=== PATIENT | male | born 1965 | race Caucasian/White ===

== ENCOUNTER 2018-12-26 22:50 | Inpatient (IN) | payer MEDICARE, MEDICAID ==
--- NOTE | 2018-12-26 23:50 | ED ---
General Adult HPI - General Chief complaint: Psychiatric Symptoms Stated complaint: Mental health Time Seen by Provider: 12/26/18 23:06 Source: police Mode of arrival: ambulatory Limitations: no limitations - History of Present Illness Initial comments: Dictation was produced using [employer] dictation software. please excuse any grammatical, word or spelling errors. Chief Complaint: 53-year-old male past medical history of cerebral palsy and chronic nystagmus presents with paranoid believe. History of Present Illness: She is a 53-year-old male denies any history of psychiatric disease. Over the last 7 days she's been concerned that if he goes onto the street him again shot by gang members. Patient has arriving had s ymptoms like this before. Patient notified his primary care physician of this skin to referral to psychiatrist however didn't want to wait that long came to the emergency department instead. She has no other complaints at this time. Denies any suicidal or homicidal ideation. Patient however does report hearing voices and is very concerned that people are coming after him. States he hears gunshots. The ROS documented in this emergency department record has been reviewed and confirmed by me. Those systems with pertinent positive or negative responses have been documented in the HPI. All other systems are other negative and/or noncontributory. PHYSICAL EXAM: General Impression: Alert and oriented x3, not in acute distress HEENT: Normocephalic atraumatic, extra-ocular movements intact, pupils equal and reactive to light bilaterally, mucous membranes moist. Cardiovascular: Heart regular rate and rhythm, S1&S2 audible, no murmurs, rubs or gallops Chest: Lungs clear to auscultation bilaterally, no rhonchi, no wheeze, no rales Abdomen: Bowel sounds present, abdomen soft, non-tender, non-distended, no organomegaly Musculoskeletal: Pulses present and equal in all extremities, no peripheral edema Motor: no focal deficits noted Neurological: CN II-XII grossly intact, no focal motor or sensory deficits noted, nystagmus Skin: Intact with no visualized rashes Psych: Normal affect and mood ED course: 53-year-old male with history of cervical palsy and chronic nystagmus presents with paranoid behavior. Vital signs upon arrival are within acceptable limits. Patient medically cleared for EPS evaluation. Patient is signed out to Dr. Grubbs for follow-up of EPS recommendations. - Related Data Home Medications Medication Instructions Recorded Confirmed Latanoprost [Xalatan 0.005%] 1 drop BOTH EYES HS 12/26/18 12/27/18 Eslicarbazepine Acetate [Aptiom] 800 mg PO QAM 12/28/18 12/28/18 Previous Rx's Medication Instructions Recorded risperiDONE [RisperDAL] 0.25 mg PO HS #14 tab 12/30/18 Allergies Allergy/AdvReac Type Severity Reaction Status Date / Time pseudoephedrine Allergy Unknown Verified 12/27/18 02:11 [From Sudafed] decongestants Allergy Unknown Uncoded 12/27/18 02:11 Review of Systems ROS Statement: Those systems with pertinent positive or pertinent negative responses have been documented in the HPI. ROS Other: All systems not noted in ROS Statement are negative. Past Medical History Additional Past Medical History / Comment(s): CP, History of Any Multi-Drug Resistant Organisms: None Reported Past Surgical History: Orthopedic Surgery Past Psychological History: No Psychological Hx Reported Smoking Status: Never smoker Past Alcohol Use History: Occasional Past Drug Use History: None Reported - Past Family History Father Family Medical History: Hypertension General Exam Limitations: no limitations Course Vital Signs 12/26/18 12/27/18 22:52 02:24 Temperature 98.0 F Pulse Rate 87 83 Respiratory 18 16 Rate Blood Pressure 148/81 136/81 O2 Sat by Pulse 97 100 Oximetry Medical Decision Making - Lab Data Result diagrams: 12/28/18 09:03 12/28/18 09:03 Disposition Clinical Impression: Acute psychosis Disposition: ADMITTED IP TO THIS HOSP Condition: Stable Decision Time: 15:58
[2018-12-27] MEDS ORDERED: MAGNESIUM HYDROXIDE 2,400 MG/10 ML CUP PO PRN (02:36)
[2018-12-27] MEDS ORDERED: LORazepam 1 MG TAB PO PRN (02:36)
[2018-12-27] MEDS ORDERED: ACETAMINOPHEN TAB 325 MG TAB PO PRN (02:36)
[2018-12-27] MEDS ORDERED: MAG HYDROX/AL HYDROX/SIMETH 30 ML CUP PO PRN (02:36)
[2018-12-27] MEDS ORDERED: ZIPRASIDONE 20 MG VIAL IM PRN (02:36)
[2018-12-27 03:10] VITALS: BMI 28.3
[2018-12-27 07:19] LABS: Appearance,Urine Clear (Clear); Bilirubin,Urine Negative (Negative); Blood,Urine Trace (Negative); Color,Urine Yellow; Glucose,Urine (UA) Negative (Negative); Ketones,Urine Trace (Negative); Leukocyte Esterase,Urine Negative (Negative); Mucus,Urine Many /hpf; Nitrite,Urine Negative (Negative); PH, Urine 5.5 (5.0-8.0); Protein,Urine Trace (Negative); RBC,Urine 1 /hpf (0-5); Specific Gravity,Urine 1.033 (1.001-1.035); Urobilinogen,Urine <2.0 mg/dL (<2.0); WBC,Urine 2 /hpf (0-5)
[2018-12-27] MEDS: APTIOM 800 MG PO SCH (08:50)
--- NOTE | 2018-12-27 13:05 | P.HP ---
Psychiatric H&P - . H&P Date: 12/27/18 History & Physical: Allergies Allergy/AdvReac Type Severity Reaction Status Date / Time pseudoephedrine Allergy Unknown Verified 12/27/18 02:11 [From [facility]] decongestants Allergy Unknown Uncoded 12/27/18 02:11 Vital Signs Temp 97.7 F 12/27/18 03:04 Pulse 77 12/27/18 03:04 Resp 14 12/27/18 03:04 BP 135/96 12/27/18 03:04 Pulse Ox 97 12/27/18 03:04 Intake & Output 12/26/18 12/27/18 12/27/18 18:59 06:59 18:59 Weight 76.204 kg Laboratory Last Values Urine Color Yellow 12/27/18 05:18 Urine Appearance Clear (Clear) 12/27/18 05:18 Urine pH 5.5 (5.0-8.0) 12/27/18 05:18 Ur Specific [place] 1.033 (1.001-1.035) 12/27/18 05:18 Urine Protein Trace (Negative) H 12/27/18 05:18 Urine Glucose (UA) Negative (Negative) 12/27/18 05:18 Urine Ketones Trace (Negative) H 12/27/18 05:18 Urine Blood Trace (Negative) H 12/27/18 05:18 Urine Nitrite Negative (Negative) 12/27/18 05:18 Urine Bilirubin Negative (Negative) 12/27/18 05:18 Urine Urobilinogen <2.0 mg/dL (<2.0) 12/27/18 05:18 Ur Leukocyte Esterase Negative (Negative) 12/27/18 05:18 Urine RBC 1 /hpf (0-5) 12/27/18 05:18 Urine WBC 2 /hpf (0-5) 12/27/18 05:18 Urine Mucus Many /hpf (None) H 12/27/18 05:18 12/27/18 12:53 Identification: Patient is a 53-year-old male is brought to the emergency room for paranoid ideation and auditory hallucinations. History of Present Illness: Patient states the last Wednesday he began to experience auditory hallucinations saying that they were going to hurt him because he was a gang member. He states that symptoms began and were constant and have consistently been present since that time. Patient states that he doesn't think anyone is out to get him, denies ever having had these symptoms in the past. He states since he's been in the hospital the voices are slightly less intense but have continued to be present. He denies feeling people are out to get him, or other paranoid ideation. Patient states that he has never had auditory hallucinations in the past nor paranoid ideation and does not endorse any other psychotic symptoms currently or in the past. Patient states that he is never felt depressed in the past denies any manic symptoms in the past and denies any anxiety symptoms. Patient states that nothing has changed recently, he is not been placed on any new medication and there have been no changes to his seizure medications. Patient states that there have been no traumas or other events recently. Patient cannot identify any precipitant. Patient denies any prior psychiatric treatment or the use of any psychiatric meds in the past. Patient denies any drug use currently and states he uses about a 12 pack of beer a month and this is not changed. Patient does have a seizure disorder, he describes petit mal seizures states he has never lost consciousness or control of his bowel or bladder and states that he is currently on Aptiom 800 mg for his seizures and has been on this current dose for several years. Patient states that he has seizures periodically he had one last week and describes them as being in a daze. He does not describe any are as and states he has never had any associated auditory, visual or tactile hallucinations or olfactory hallucinations associated with his seizures. Patient has a history of cerebral palsy, states he is not on any new medication for any reason at this time. Past Psychiatric History: Patient denies any prior inpatient psychiatric treatme nt, outpatient psychiatric treatment or any psychotropic medication. Past Medical/Surgical History: Patient has cerebral palsy and has undergone surgeries on his left arm and leg from the age of [age]. Patient has petit mal seizures and nystagmus. Family History: Patient states that there is no family members with a history of psychiatric disorders or alcohol or drug use disorders and no completed suicides Social History: Patient reports that both of his parents are , he has 1 brother and 2 sisters. 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 Patient states he's never been and has no children. Patient lives alone in an apartment he does not drive his sister assist him in taking him to appointments and to shop. He states that he cares for his apartment on his own cleaning and cooking for himself. Patient states that when he is out of the hospital he uses no assistive devices either at home or when he is out. Patient denies any abuse history. Substance Use History: Patient states he uses about 12 beers a month and has never used any more alcohol in the past and denies any current or prior drug use history Legal History: Patient denies any legal history Mental status: Appearance/Attitude: Patient is dressed in a hospital gown, he stated he is using a wheelchair here while he is in the hospital, he makes eye contact and is cooperative. Patient states that his left arm and left leg are affected by the cerebral palsy Behavior: Patient did not display any psychomotor agitation or retardation Speech/Language: Patient's speech is spontaneous of normal volume and rhythm and he is coherent Thought Process: Patient is goal-directed there is no evidence of loose association or flight of ideas Thought Content: Patient states that the auditory hallucinations have been present since last week and have been mostly consistent stating that they're going to harm him because he is a gang member. Patient denies any visual, tactile or olfactory hallucinations and denies any paranoid or delusional id eation. Patient cannot pinpoint any precipitant to the auditory hallucinations, he does not report any change in his sleep patterns and he has been eating well. Suicidal/Homicidal Ideation: Patient denies any current suicidal or homicidal ideation Sensorium/Cognition: Patient is alert and oriented to person, place, and time and his recent and remote memory are grossly intact Mood/Affect: Patient's mood is pleasant and his affect is appropriate Insight/Judgment: Patient's insight and judgment are intact Intellectual Functioning: Patient's intellectual functioning appears average Strength/Weakness: patient has housing, source of financial support, supportive family Assessment: patient has no prior psychiatric history, does not endorse any prior symptoms of depression, anxiety daniel or psychosis. Patient states that last week he began hearing voices telling him that they were going to hurt him because he was a gang member. He states the voices remained consistent and only decreased since he's been here in the hospital. Patient cannot identify a precipitant, he has had no new medications, no change to his antiseizure medications and states that his seizures have not changed in character and her which he describes as having a daze and states that he had a seizure last week but denies and are associated with his seizures or any auditory, visual, tactile or olfactory hallucinations associated with his seizures. Patient has never lost consciousness with his seizures nor had any loss of bowel or bladder control. Patient has not been given any new medications recently and does not use any drugs and has not had any increase in his use of alcohol. Patient has a history of cerebral palsy and petit mal seizures. There appear to be no precipitants that the patient can identify, no changes to his medications, no new medications, no use of drugs to his developing auditory hallucinations. Patient denies ever having them in the past. Admission Diagnosis: unspecified psychotic disorder Plan: Patient was admitted on a voluntary basis, placed on routine precautions, group and activity therapy were ordered. Patient will have routine laboratory studies and a medical consultation was ordered. Patient will be continued on his medication for his seizure disorder, and his eyedrops. Patient and I discussed medications to target his auditory hallucinations and I will begin low-dose Risperdal 0.25 mg at bedtime and I reviewed the use and side effects with the patient. Patient was agreeable to this trial to see if we can control his auditory hallucinations. Patient requires hospitalization to stabilize his symptoms, anticipate a short hospital stay. 12/27/18 12:56
[2018-12-27 17:35] LABS: Urine Alcohol Negative (Negative); Urine Barbiturate Negative (Negative); Urine Cocaine Negative (Negative); Urine Methadone Negative (Negative); Urine Opiates Negative (Negative); Urine Phencyclidine Negative (Negative)
[2018-12-27] MEDS: risperiDONE 0.25 MG TAB PO SCH (21:05)
[2018-12-27] MEDS: LATANOPROST 0.005% OPHTH DROPS 2.5 ML BTL BOTH EYES SCH (21:23)
--- NOTE | 2018-12-28 02:20 | P.HPIM ---
History of Present Illness H&P Date: 12/28/18 The patient is a 53 yo M with a PMH of cerebral palsy and psychiatric illnesses presented to the ED for delusions and hearing voices. The patient was seen in the [facility]. He noted that he decided to come to the ED since he was hearing voices and was concerned for his safety. He notes feeling better since admission. He denied any additional medical history or taking any medications. Denied any active complaints including fever, chills, chest pain or SOB. Also denied abdominal pain, nausea, or vomiting. Further denied headaches, or visual disturbances. Review of Systems Pertinent positives and negatives as discussed in HPI, a complete review of systems was performed and all other systems are negative. Past Medical History Additional Past Medical History / Comment(s): CP, History of Any Multi-Drug Resistant Organisms: None Reported Past Surgical History: Cholecystectomy, Orthopedic Surgery Additional Past Surgical History / Comment(s): Multiple orthopedic surgs from age 4 to 18 years old. Choly 08/2018 Past Psychological History: No Psychological Hx Reported Smoking Status: Never smoker Past Alcohol Use History: Occasional Past Drug Use History: None Reported - Past Family History Father Family Medical History: Hypertension Medications and Allergies Home Medications Medication Instructions Recorded Confirmed Type Latanoprost [Xalatan 0.005%] 1 drop BOTH EYES HS 12/26/18 12/27/18 History Optium 800mg 800 mg PO QAM 12/26/18 12/27/18 History Allergies Allergy/AdvReac Type Severity Reaction Status Date / Time pseudoephedrine Allergy Unknown Verified 12/27/18 02:11 [From [facility]] decongestants Allergy Unknown Uncoded 12/27/18 02:11 Physical Exam Vitals: Vital Signs Temp Pulse Pulse Resp BP BP Pulse Ox 12/27/18 03:04 97.7 F 77 14 135/96 97 12/27/18 02:24 83 16 136/81 100 General: non toxic, no distress, appears at stated age, normal weight Derm: no unusual rashes/lesions no unusual ecchymoses, warm, dry Head: atraumatic, normocephalic, symmetric Eyes: EOMI, no lid lag, anicteric sclera, pupils equal round reactive to light ENT: Nose and ears atraumatic, no thrush, no pharyngeal erythema Neck: No thyromegaly, no cervical lymphadenopathy, trachea midline, supple Mouth: no lip lesion, mucus membranes moist Cardiovascular: S1S2 reg, no murmur, positive posterior tibial pulse bilateral, no edema, capillary refill less than 2 seconds Lungs: CTA bilateral, no rhonchi, no rales , no accessory muscle use Abdominal: soft, nontender to palpation, no guarding, no appreciable organomegaly, normal bowel sounds Ext: LUE wasting, muscle strength 5 out of 5 in all extremities grossly except the LUE, no contractures, Neuro: CN II-XI grossly intact, light touch intact all 4 extremities, finger to nose within normal limits, Psych: Alert, oriented, appropriate affect Results Labs: Abnormal Lab Results - Last 24 Hours (Table) 12/27/18 Range/Units 05:18 Urine Protein Trace H (Negative) Urine Ketones Trace H (Negative) Urine Blood Trace H (Negative) Urine Mucus Many H (None) /hpf Thrombosis Risk Factor Assmnt - Choose All That Apply Any of the Below Risk Factors Present?: Yes Each Factor Represents 1 point: Obesity (BMI >25) Other Risk Factors: No Thrombosis Risk Factor Assessment Total Risk Factor Score: 1 Thrombosis Risk Factor Assessment Level: Low Risk Assessment and Plan Plan: Overweight -Advised on lifestyle modifications Psychosis -As per psychiatry Thank you for allowing us to participate in the care of this patient. We will follow peripherally. Do not hesitate to contact us with questions. Someone can be reached from the [facility] hospitalist group at all hours of the day at [phone].
[2018-12-28] MEDS: APTIOM 800 MG PO SCH (08:11)
[2018-12-28 09:47] LABS: Basophils % (A) 1 %; Eosinophils # (A) 0.2 k/uL (0-0.7); Eosinophils % (A) 3 %; HCT 45.1 % (39.0-53.0); HGB 14.3 gm/dL (13.0-17.5); Lymphocytes # (A) 1.1 k/uL (1.0-4.8); Lymphocytes % (A) 25 %; MCH 26.9 pg (25.0-35.0); MCHC 31.8 g/dL (31.0-37.0); MCV 84.8 fL (80.0-100.0); Mean Platelet Volume 7.6; Monocytes # (A) 0.3 k/uL (0-1.0); Monocytes % (A) 6 %; Neutrophils # (A) 2.8 k/uL (1.3-7.7); Neutrophils % (A) 63 %; Platelet Count 223 k/uL (150-450); RBC 5.32 m/uL (4.30-5.90); RDW 15.4 % (11.5-15.5); WBC 4.5 k/uL (3.8-10.6)
[2018-12-28 10:00] LABS: Albumin 4.2 g/dL (3.5-5.0); Calcium 9.4 mg/dL (8.4-10.2); Potassium 3.5 mmol/L (3.5-5.1); Total Bilirubin 0.6 mg/dL (0.2-1.3)
--- NOTE | 2018-12-28 11:43 | P.PN ---
Progress Note - Text Progress Note Date: 12/28/18 Interval History: Patient is a 53-year-old male who was seen in his room, patient states that he slept well last evening and is not currently hearing voices this morning. He states that he's been eating well and is not feeling paranoid. States that he is feeling calmer on the medication. Patient has attended some groups and activities and has been using a wheelchair to ambulate in the hospital. Mental Status: Appearance/Attitude: Patient is casually dressed, makes eye contact and was cooperative Behavior: Patient does not exhibit any psychomotor agitation or retardation. Speech/Language: Patient's speech is spontaneous of normal volume and rhythm and he is coherent. Thought Process: Patient is goal-directed there is no evidence of loose associations or flight of ideas Thought Content: Patient denies any auditory or visual hallucinations and no delusions or paranoid ideation are elicited. Patient states that the auditory hallucinations are not present this morning and he feels much more relaxed because of that. He states that he slept well last night and has been eating well. Suicidal/Homicidal Ideation: Patient denies any current suicidal or homicidal ideation Sensorium/Cognition: Patient is alert and oriented to person, place, and time and his recent and remote memory are grossly intact Mood/Affect: Patient's mood is pleasant and his affect is appropriate Insight/Judgment: Patient's insight and judgment are fair Assessment: Patient reports that he slept well last night and that the voices are not present this morning and that he is feeling much more relaxed because of that. Patient has attended some groups and activities. He is using a wheelchair to ambulate here on the unit. Patient reports no side effects from the medication. Plan: Patient will continue on Risperdal 0.25 mg at bedtime and will continue to evaluate his response to the medication. Patient should he continued to not experience any psychotic symptoms can be considered for discharge later in the week.
[2018-12-28 19:27] LABS: Hemoglobin A1C 5.6 % (4.0-6.0)
[2018-12-28] MEDS: LATANOPROST 0.005% OPHTH DROPS 2.5 ML BTL BOTH EYES SCH (20:40)
[2018-12-28] MEDS: risperiDONE 0.25 MG TAB PO SCH (20:40)
[2018-12-29] MEDS: APTIOM 800 MG PO SCH (08:05)
--- NOTE | 2018-12-29 12:15 | P.PN ---
Progress Note - Text Progress Note Date: 12/29/18 Interval History: Patient is a 53-year-old male who was seen in his room who reports that he slept well and is no longer hearing voices, denies any suicidal ideation and no paranoid ideation. Patient states that he sleeping well and eating well and has been trying to attend some groups and activities during the day. Mental Status: Appearance/Attitude: Patient is neatly dressed, is in his room, has been using a wheelchair to get around the inpatient unit, makes eye contact and is cooperative Behavior: Patient does not display any psychomotor agitation or retardation Speech/Language: Patient's speech is spontaneous of normal volume and rhythm and he is coherent Thought Process: Patient is goal-directed there is no evidence of loose association or flight of ideas Thought Content: Patient denies any auditory or visual hallucinations and no delusions or paranoid ideation were elicited. Patient states that he is no longer hearing the voices telling him that they're going to harm him or that he is a member of a gang. He states that he's feeling more relaxed and has been sleeping and eating well. Suicidal/Homicidal Ideation: Patient denies any current suicidal or homicidal ideation Sensorium/Cognition: Patient is alert and oriented to person, place, and time and his recent and remote memory are grossly intact Mood/Affect: Patient's mood is pleasant and his affect is appropriate Insight/Judgment: Patient's insight and judgment are fair Assessment: Patient states that he is feeling less tense, is no longer hearing voices telling him that they're in a harm him because he is a gang member. He states that he sleeping and eating well and has been attempting to attend some groups. Patient states that he is taking naps during the day for several hours at a time. Plan: Patient will continue on Risperdal 0.25 mg at bedtime, patient has improved is no longer having any auditory hallucinations and will plan for his discharge tomorrow with continued outpatient follow-up.
[2018-12-29] MEDS: risperiDONE 0.25 MG TAB PO SCH (20:27)
[2018-12-29] MEDS: LATANOPROST 0.005% OPHTH DROPS 2.5 ML BTL BOTH EYES SCH (20:28)
[2018-12-30 06:55] VITALS: BP 133/62; PULSE 69; RESP 16; TEMP 97.5
[2018-12-30] MEDS: APTIOM 800 MG PO SCH (07:29)
--- NOTE | 2018-12-30 08:58 | P.DS ---
Providers Date of admission: 12/27/18 02:01 Expected date of discharge: 12/30/18 Attending physician: Vanda Bonner MD Consults: 12/27/18 02:36 Consult Physician Routine Consulting Provider: Dewey Mireles Consult Reason/Comments: Medical H and P Do you want consulting provider notified?: Yes Primary care physician: [facility] Course: Discharge Diagnosis: Unspecified psychotic disorder Reason for Admission: Patient is a 53-year-old male is brought to the emergency room for paranoid ideation and auditory hallucinations. Patient states the last Wednesday he began to experience auditory hallucinations saying that they were going to hurt him because he was a gang member. He states that symptoms began and were constant and have consistently been present since that time. Patient states that he doesn't think anyone is out to get him, denies ever having had these symptoms in the past. He states since he's been in the hospital the voices are slightly less intense but have continued to be present. He denies feeling people are out to get him, or other paranoid ideation. Patient states that he has never had auditory hallucinations in the past nor paranoid ideation and does not endorse any other psychotic symptoms currently or in the past. Patient states that he is never felt depressed in the past denies any manic symptoms in the past and denies any anxiety symptoms. Patient states that nothing has changed recently, he is not been placed on any new medication and there have been no changes to his seizure medications. Patient states that there have been no traumas or other events recently. Patient cannot identify any precipitant. Patient denies any prior psychiatric treatment or the use of any psychiatric meds in the past. Patient denies any drug use currently and states he uses about a 12 pack of beer a month and this is not changed. Patient does have a seizure disorder, he describes petit mal seizures states he has never lost consciousness or control of his bowel or bladder and states that he is currently on Aptiom 800 mg for his seizures and has been on this current dose for several years. Patient states that he has seizures periodically he had one last week and describes them as being in a daze. He does not describe any are as and states he has never had any associated auditory, visual or tactile hallucinations or olfactory hallucinations associated with his seizures. Patient has a history of cerebral palsy, states he is not on any new medication for any reason at this time. Mental status on Admission: Appearance/Attitude: Patient is dressed in a hospital gown, he stated he is using a wheelchair here while he is in the hospital, he makes eye contact and is cooperative. Patient states that his left arm and left leg are affected by the cerebral palsy Behavior: Patient did not display any psychomotor agitation or retardation Speech/Language: Patient's speech is spontaneous of normal volume and rhythm and he is coherent Thought Process: Patient is goal-directed there is no evidence of loose association or flight of ideas Thought Content: Patient states that the auditory hallucinations have been p resent since last week and have been mostly consistent stating that they're going to harm him because he is a gang member. Patient denies any visual, tactile or olfactory hallucinations and denies any paranoid or delusional ideation. Patient cannot pinpoint any precipitant to the auditory hallucinations, he does not report any change in his sleep patterns and he has been eating well. Suicidal/Homicidal Ideation: Patient denies any current suicidal or homicidal ideation Sensorium/Cognition: Patient is alert and oriented to person, place, and time and his recent and remote memory are grossly intact Mood/Affect: Patient's mood is pleasant and his affect is appropriate Insight/Judgment: Patient's insight and judgment are intact Hospital Course: Patient was admitted on a voluntary basis, placed on routine observation in group and activity therapy were ordered. Patient was also ordered routine laboratory studies as well as a medical consultation. Patient was continued on Aptiom and latanoprost eyedrops for medical conditions. Patient and I discussed using Risperdal to target his auditory hallucinations and he was agreeable to this and we reviewed the use and side effects and began him on 0.25 mg at bedtime. Patient reported that the auditory hallucinations had decreased significantly by the next morning and then eventually were gone. Patient states that he was sleeping better, felt more relaxed and was no longer having auditory hallucinations that were telling him he was part of a gang. Patient denied any other symptomatology of paranoid ideation or suicidal ideation or homicidal ideation. Patient attended some groups and activities and was using a wheelchair to ambulate while on the unit. Patient reported no side effects from the medication and was ready for discharge. Allergies pseudoephedrine [From Sudafed] Allergy (Verified 12/27/18 02:11) Unknown decongestants Allergy (Uncoded 12/27/18 02:11) Unknown Laboratory Last Values WBC 4.5 k/uL (3.8-10.6) 12/28/18 09:03 RBC 5.32 m/uL (4.30-5.90) 12/28/18 09:03 Hgb 14.3 gm/dL (13.0-17.5) 12/28/18 09:03 Hct 45.1 % (39.0-53.0) 12/28/18 09:03 MCV 84.8 fL (80.0-100.0) 12/28/18 09:03 MCH 26.9 pg (25.0-35.0) 12/28/18 09:03 MCHC 31.8 g/dL (31.0-37.0) 12/28/18 09:03 RDW 15.4 % (11.5-15.5) 12/28/18 09:03 Plt Count 223 k/uL (150-450) 12/28/18 09:03 Neutrophils % 63 % 12/28/18 09:03 Lymphocytes % 25 % 12/28/18 09:03 Monocytes % 6 % 12/28/18 09:03 Eosinophils % 3 % 12/28/18 09:03 Basophils % 1 % 12/28/18 09:03 Neutrophils # 2.8 k/uL (1.3-7.7) 12/28/18 09:03 Lymphocytes # 1.1 k/uL (1.0-4.8) 12/28/18 09:03 Monocytes # 0.3 k/uL (0-1.0) 12/28/18 09:03 Eosinophils # 0.2 k/uL (0-0.7) 12/28/18 09:03 Basophils # 0.0 k/uL (0-0.2) 12/28/18 09:03 Sodium 142 mmol/L (137-145) 12/28/18 09:03 Potassium 3.5 mmol/L (3.5-5.1) 12/28/18 09:03 Chloride 105 mmol/L (98-107) 12/28/18 09:03 Carbon Dioxide 26 mmol/L (22-30) 12/28/18 09:03 Anion Gap 11 mmol/L 12/28/18 09:03 BUN 15 mg/dL (9-20) 12/28/18 09:03 Creatinine 1.13 mg/dL (0.66-1.25) 12/28/18 09:03 Est GFR (CKD-EPI)AfAm 86 (>60 ml/min/1.73 sqM) 12/28/18 09:03 Est GFR (CKD-EPI)NonAf 75 (>60 ml/min/1.73 sqM) 12/28/18 09:03 Glucose 131 mg/dL (74-99) H 12/28/18 09:[address] Glu mg/dL 114 12/28/18 09:03 Hemoglobin A1c 5.6 % (4.0-6.0) 12/28/18 09:03 Calcium 9.4 mg/dL (8.4-10.2) 12/28/18 09:03 Total Bilirubin 0.6 mg/dL (0.2-1.3) 12/28/18 09:03 AST 19 U/L (17-59) 12/28/18 09:03 ALT 18 U/L (21-72) L 12/28/18 09:03 Alkaline Phosphatase 127 U/L (38-126) H 12/28/18 09:03 Total Protein 7.0 g/dL (6.3-8.2) 12/28/18 09:03 Albumin 4.2 g/dL (3.5-5.0) 12/28/18 09:03 Triglycerides 111 mg/dL (<150) 12/28/18 09:03 Cholesterol 178 mg/dL (<200) 12/28/18 09:03 LDL Cholesterol, Calc 117 mg/dL (0-99) H 12/28/18 09:03 HDL Cholesterol 39 mg/dL (40-60) L 12/28/18 09:03 TSH 2.320 mIU/L (0.465-4.680) 12/28/18 09:03 Urine Color Yellow 12/27/18 05:18 Urine Appearance Clear (Clear) 12/27/18 05:18 Urine pH 5.5 (5.0-8.0) 12/27/18 05:18 Ur Specific [place]ity 1.033 (1.001-1.035) 12/27/18 05:18 Urine Protein Trace (Negative) H 12/27/18 05:18 Urine Glucose (UA) Negative (Negative) 12/27/18 05:18 Urine Ketones Trace (Negative) H 12/27/18 05:18 Urine Blood Trace (Negative) H 12/27/18 05:18 Urine Nitrite Negative (Negative) 12/27/18 05:18 Urine Bilirubin Negative (Negative) 12/27/18 05:18 Urine Urobilinogen <2.0 mg/dL (<2.0) 12/27/18 05:18 Ur Leukocyte Esterase Negative (Negative) 12/27/18 05:18 Urine RBC 1 /hpf (0-5) 12/27/18 05:18 Urine WBC 2 /hpf (0-5) 12/27/18 05:18 Urine Mucus Many /hpf (None) H 12/27/18 05:18 Urine Opiates Screen Negative ng/mL (Negative) 12/27/18 05:18 Urine Methadone Screen Negative ng/mL (Negative) 12/27/18 05:18 Ur Propoxyphene Screen Negative ng/mL (Negative) 12/27/18 05:18 Urine Barbiturates Negative ng/mL (Negative) 12/27/18 05:18 Ur Phencyclidine Scrn Negative ng/mL (Negative) 12/27/18 05:18 Ur Amphetamine Screen Negative ng/mL (Negative) 12/27/18 05:18 U Benzodiazepines Scrn Negative ng/mL (Negative) 12/27/18 05:18 Urine Cocaine Screen Negative ng/mL (Negative) 12/27/18 05:18 U Cannabinoids Screen Negative ng/mL (Negative) 12/27/18 05:18 Urine Alcohol Negative mg/dL (Negative) 12/27/18 05:18 Discharge Mental Status: Appearance/Attitude: Patient is casually dressed, makes eye contact and is cooperative Behavior: Patient does not display any psychomotor agitation or retardation. Speech/Language: Patient's speech is spontaneous of normal volume and rhythm and he is coherent Thought Process: Patient is goal-directed there is no evidence of loose association or flight of ideas Thought Content: Patient denies any auditory or visual hallucinations and no delusions or paranoid ideation or elicited. Patient states that he is sleeping much better, feeling much more relaxed. Patient reports that he is eating well and reported no side effects from the medication. Suicidal/Homicidal Ideation: Patient denies any current suicidal or homicidal ideation Sensorium/Cognition: Patient is alert and oriented to person, place, and time and his recent and remote memory are grossly intact Mood/Affect: patient's mood is pleasant and his affect is appropriate Insight/Judgment: Patient's insight and judgment are fair Risk Assessment: Patient's risk for readmission is low patient has no prior his tory of inpatient admissions, no drug or alcohol use Discharge Plan: patient will return to his home, he will continue on Risperdal 0.25 mg at bedtime and will be given a prescription for this and he will continue on Aptiom 800mgqam for his seizure disorder and one cat approached eyedrops at bedtime patient has sufficient of these medications and no prescriptions will be given for these. Patient will follow-up at [facility] psychiatry on January 04. Patient will follow-up with his primary care physician for his medical problems and was advised to be compliant with medications and follow-up appointments and to avoid all alcohol and drugs. Patient Condition at Discharge: Stable Plan - Discharge Summary New Discharge Prescriptions: New risperiDONE [RisperDAL] 0.25 mg PO HS #14 tab Continue Latanoprost [Xalatan 0.005%] 1 drop BOTH EYES HS Eslicarbazepine Acetate [Aptiom] 800 mg PO QAM Discharge Medication List Latanoprost [Xalatan 0.005%] 1 drop BOTH EYES HS 12/26/18 [History] Eslicarbazepine Acetate [Aptiom] 800 mg PO QAM 12/28/18 [History] risperiDONE [RisperDAL] 0.25 mg PO HS #14 tab 12/30/18 [Rx] Follow up Appointment(s)/Referral(s): Psychiatry,[facility] [Other] - 01/04/19 11:40 am (Dr Mac Please arrive at 11:20 for paperwork, approx 40 minute appointment Pt can transfer to [place] once established with [facility].) Martín Kyle MD [Primary Care Provider] - 1-2 days Patient Instructions/Handouts: Help Prevent Suicide (DC), Psychotic Disorder (ED), Suicide Prevention (DC) Activity/Diet/Wound Care/Special Instructions: Activity and diet as tolerated. No guns or weapons in the home. Refrain from alcohol and street drugs that are not prescribed by your physician. TAke all medications as prescribed, and attend all follow up appointments as scheduled. If in need of medication refills, please go to your primary care physician, or to your out patient psychiatric provider. If in crisis, please call , or go to the nearest ER. Discharge Disposition: HOME SELF-CARE
== END 2018-12-30 11:33 | disposition home or self-care (01) | DRG 885 ==
LOC: EC 22:50 → 3MHU 12-27 02:01
PROVIDERS: ADMIT Psychiatry & Neurology Psychiatry; ATTEND Psychiatry & Neurology Psychiatry
DX: F29 Unspecified psychosis not due to a substance or known physiological condition (principal); G40.909 Epilepsy, unspecified, not intractable, without status epilepticus; E66.3 Overweight; G80.9 Cerebral palsy, unspecified; H55.00 Unspecified nystagmus; Z88.8 Allergy status to other drugs, medicaments and biological substances; Z79.899 Other long term (current) drug therapy; Z90.49 Acquired absence of other specified parts of digestive tract; Z82.49 Family history of ischemic heart disease and other diseases of the circulatory system; Z68.28 Body mass index [BMI] 28.0-28.9, adult
CPT/HCPCS: 80053; 80061; 80306; 81001; 82075; 83036; 84443; 85025; 99284